=== PATIENT | male | born 1975 | race Two or more races ===

== ENCOUNTER 2020-09-18 17:15 | Inpatient (IN) | payer OTHER ==
[2020-09-19] MEDS ORDERED: LORazepam 1 MG TABLET PO PRN (06:10)
[2020-09-19] MEDS ORDERED: MAGNESIUM CITRATE 300 ML BOTTLE PO PRN (06:10)
[2020-09-19] MEDS ORDERED: IBUPROFEN 400 MG TABLET (FP) PO PRN (06:10)
[2020-09-19] MEDS ORDERED: MENTHOL/PHENOL 1 EACH UD MM PRN (06:10)
[2020-09-19] MEDS ORDERED: MAG HYDROX/AL HYDROX/SIMETH 30 ML UNIT-DOSE CUP PO PRN (06:10)
[2020-09-19] MEDS ORDERED: NICOTINE POLACRILEX 2 MG GUM BUC PRN (06:10)
[2020-09-19] MEDS ORDERED: ACETAMINOPHEN 325 MG TABLET (FP) PO PRN ×2 (06:10)
[2020-09-19] MEDS ORDERED: ONDANSETRON *ODT* 4 MG TABLET SL PRN (06:10)
[2020-09-19] MEDS ORDERED: BISMUTH SUBSALICYLATE 524 MG/30 ML UD PO PRN (06:10)
[2020-09-19] MEDS ORDERED: METHOCARBAMOL 500 MG TABLET PO PRN (06:10)
[2020-09-19 06:50] VITALS: BMI 39.9
[2020-09-19] MEDS: LORazepam 2 MG TABLET PO SCH ×4 (08:12→22:02)
[2020-09-19] MEDS: PRENATAL VITAMINS W/ FOLIC ACID TABLET (FP) PO SCH (10:49)
[2020-09-19] MEDS: NICOTINE 14 MG/24 HOURS TOPICAL PATCH TD SCH (10:52)
[2020-09-19] MEDS: THIAMINE HCL 100 MG TABLET (FP) PO SCH (22:02)
[2020-09-19] MEDS: MELATONIN 5 MG TABLETS PO SCH (22:02)
[2020-09-20] MEDS: LORazepam 1 MG TABLET PO SCH ×4 (05:45→22:19)
[2020-09-20] MEDS: PRENATAL VITAMINS W/ FOLIC ACID TABLET (FP) PO SCH (10:18)
[2020-09-20] MEDS: NICOTINE 14 MG/24 HOURS TOPICAL PATCH TD SCH (10:19)
[2020-09-20 12:04] LABS: HEMATOCRIT 35.6 % (35.4-49); MCH 32.7 pg (25.7-33.7); MCHC 33.7 g/dl (32.0-35.9); MEAN CELL VOLUME 96.9 fl (80-96); MEAN PLT VOLUME 9.2 fl (7.5-11.1); PLATELET COUNT 89 K/MM3 (134-434); RBC 3.67 M/mm3 (4.00-5.60); RDW 14.2 % (11.9-15.9); WHITE BLOOD COUNT 3.2 K/mm3 (4.0-10.0)
[2020-09-20 12:06] LABS: POTASSIUM 3.1 mmol/L (3.5-5.1)
[2020-09-20 12:08] LABS: CALCIUM 8.5 mg/dL (8.5-10.1)
[2020-09-20 12:09] LABS: ALBUMIN 3.2 g/dl (3.4-5.0); BLOOD UREA NITROGEN 6.9 mg/dL (7-18)
[2020-09-20 12:12] LABS: CREATININE 0.5 mg/dL (0.55-1.3)
[2020-09-20 12:13] LABS: BILIRUBIN,TOTAL 2.1 mg/dL (0.2-1)
[2020-09-20 12:14] LABS: TOT PROT 7.1 g/dl (6.4-8.2)
[2020-09-20] MEDS ORDERED: POTASSIUM CHLORIDE TABS 20 MEQ TABLET.ER (FP) PO ONE ×2 (14:36→21:00)
[2020-09-20] MEDS: MAGNESIUM HYDROX 2400MG/30ML ORAL SUSPENSION 30 ML CUP PO PRN (14:37)
[2020-09-20] MEDS ORDERED: LORazepam 0.5 MG TABLET ONE (21:31)
[2020-09-20] MEDS: THIAMINE HCL 100 MG TABLET (FP) PO SCH (22:18)
[2020-09-20] MEDS: MELATONIN 5 MG TABLETS PO SCH (22:19)
[2020-09-21] MEDS ORDERED: LORazepam 0.5 MG TABLET PO PRN
[2020-09-21] MEDS: LORazepam 0.5 MG TABLET PO SCH ×4 (05:30→22:09)
[2020-09-21] MEDS: MAGNESIUM HYDROX 2400MG/30ML ORAL SUSPENSION 30 ML CUP PO PRN (05:33)
[2020-09-21] MEDS: NICOTINE 14 MG/24 HOURS TOPICAL PATCH TD SCH (10:21)
[2020-09-21] MEDS: PRENATAL VITAMINS W/ FOLIC ACID TABLET (FP) PO SCH (10:21)
[2020-09-21 12:23] LABS: ALBUMIN 3.2 g/dl (3.4-5.0); BLOOD UREA NITROGEN 7.8 mg/dL (7-18)
[2020-09-21 12:25] LABS: CALCIUM 9.1 mg/dL (8.5-10.1)
[2020-09-21 12:26] LABS: CREATININE 0.5 mg/dL (0.55-1.3)
[2020-09-21 12:27] LABS: BILIRUBIN,TOTAL 0.8 mg/dL (0.2-1)
[2020-09-21 12:28] LABS: TOT PROT 7.2 g/dl (6.4-8.2)
[2020-09-21] MEDS: LIDOCAINE 5% TOPICAL PATCH TP SCH (13:45)
[2020-09-21] MEDS: MELATONIN 5 MG TABLETS PO SCH (22:09)
[2020-09-21] MEDS: THIAMINE HCL 100 MG TABLET (FP) PO SCH (22:09)
[2020-09-21] MEDS: LIDOCAINE PATCH REMOVAL MC SCH (22:10)
[2020-09-22] MEDS ORDERED: LORazepam 0.5 MG TABLET PO ONE (05:00)
[2020-09-22] MEDS: PRENATAL VITAMINS W/ FOLIC ACID TABLET (FP) PO SCH (10:32)
[2020-09-22] MEDS: NICOTINE 14 MG/24 HOURS TOPICAL PATCH TD SCH (10:32)
[2020-09-22] MEDS: LIDOCAINE 5% TOPICAL PATCH TP SCH (10:33)
[2020-09-22] MEDS: MELATONIN 5 MG TABLETS PO SCH (22:11)
[2020-09-22] MEDS: THIAMINE HCL 100 MG TABLET (FP) PO SCH (22:11)
[2020-09-22] MEDS: MAGNESIUM HYDROX 2400MG/30ML ORAL SUSPENSION 30 ML CUP PO PRN (22:12)
[2020-09-22] MEDS: LIDOCAINE PATCH REMOVAL MC SCH (22:13)
[2020-09-23 09:15] VITALS: BP 103/68; PULSE 82; TEMP 96.6
[2020-09-23] MEDS: LIDOCAINE 5% TOPICAL PATCH TP SCH (10:06)
[2020-09-23] MEDS: NICOTINE 14 MG/24 HOURS TOPICAL PATCH TD SCH (10:09)
[2020-09-23] MEDS: PRENATAL VITAMINS W/ FOLIC ACID TABLET (FP) PO SCH (10:09)
== END 2020-09-23 10:59 | disposition other institution (70) | DRG 775 ==
LOC: YASAS 17:15 → Y3N 09-19 06:35
PROVIDERS: ADMIT Allergy & Immunology; ATTEND Allergy & Immunology
PROC: HZ2ZZZZ Detoxification Services for Substance Abuse Treatment (ICD-10-PCS; principal; 2020-09-19)
DX: F10.230 Alcohol dependence with withdrawal, uncomplicated (principal); F17.210 Nicotine dependence, cigarettes, uncomplicated; D69.6 Thrombocytopenia, unspecified; E87.6 Hypokalemia; E78.5 Hyperlipidemia, unspecified; I10 Essential (primary) hypertension; K76.0 Fatty (change of) liver, not elsewhere classified; R73.9 Hyperglycemia, unspecified; R94.5 Abnormal results of liver function studies; R76.11 Nonspecific reaction to tuberculin skin test without active tuberculosis
CPT/HCPCS: 36415; 71045-TC-FY; 71046-TC-FY; 71111-TC-FY; 74177-TC; 76705-TC; 80053; 80307; 82550; 82553; 83036; 83690; 84484; 85025; 85027; 86780; 93005; 93010; 99285-25; C9803; Q9967; U0003

== ENCOUNTER 2020-09-18 20:47 | Emergency (ER) | payer OTHER ==
[2020-09-18 21:02] VITALS: TEMP 98; BMI 45.7
[2020-09-18] MEDS ORDERED: ACETAMINOPHEN 1000 MG/100 ML VIAL (NON FORMULARY) IVPB ONE (21:21)
[2020-09-18] MEDS ORDERED: FAMOTIDINE 20 MG/50 ML IVPB 20 MG/50 ML MG IVPB ONE ×2 (21:21→22:12)
[2020-09-18] MEDS ORDERED: SODIUM CHLORIDE 1,000 ML IV STA (21:28)
[2020-09-18] MEDS ORDERED: chlordiazePOXIDE HCL 25 MG CAPSULE PO ONE (22:04)
[2020-09-18] MEDS ORDERED: LORazepam 2 MG/ML SDV VIAL IVPUSH ONE (22:04)
[2020-09-18] MEDS ORDERED: chlordiazePOXIDE HCL 25 MG CAPSULE ONE (22:12)
[2020-09-18] MEDS ORDERED: LORazepam 2 MG/ML SDV VIAL ONE (22:12)
[2020-09-18 22:14] LABS: BASO % 0.9 % (0-2.0); EOS % 2.2 % (0-4.5); HEMATOCRIT 35.1 % (35.4-49); HEMOGLOBIN 11.8 GM/dL (11.7-16.9); LYMPH % 31.4 % (8-40); MCH 32.6 pg (25.7-33.7); MCHC 33.6 g/dl (32.0-35.9); MEAN CELL VOLUME 97.2 fl (80-96); MEAN PLT VOLUME 8.6 fl (7.5-11.1); MONO % 11.6 % (3.8-10.2); NEUT % 53.9 % (42.8-82.8); PLATELET COUNT 105 K/MM3 (134-434); RBC 3.61 M/mm3 (4.00-5.60); RDW 14.1 % (11.9-15.9); WHITE BLOOD COUNT 4.5 K/mm3 (4.0-10.0)
[2020-09-18 22:33] LABS: CHLORIDE 98 mmol/L (98-107); POTASSIUM 3.9 mmol/L (3.5-5.1); SODIUM 136 mmol/L (136-145)
[2020-09-18 22:35] LABS: CALCIUM 8.8 mg/dL (8.5-10.1)
[2020-09-18 22:36] LABS: ALBUMIN 3.4 g/dl (3.4-5.0); ANION GAP 7 MMOL/L (8-16); BLOOD UREA NITROGEN 12.7 mg/dL (7-18); CO2 31 mmol/L (21-32); GLUCOSE,RANDOM 85 mg/dL (74-106)
[2020-09-18 22:39] LABS: CREATININE 0.6 mg/dL (0.55-1.3); SGPT/ALT 55 U/L (13-61)
[2020-09-18 22:41] LABS: BILIRUBIN,TOTAL 0.8 mg/dL (0.2-1); TOT PROT 7.8 g/dl (6.4-8.2)
[2020-09-18 22:42] LABS: ALK PHOS 175 U/L (45-117)
[2020-09-18 23:02] LABS: SGOT/AST 121 U/L (15-37)
[2020-09-18] MEDS ORDERED: morphine CARPU-JECT 2 MG/1 ML DISP.SYRIN IVPUSH ONE (23:10)
[2020-09-18] MEDS ORDERED: MAG HYDROX/AL HYDROX/SIMETH 30 ML UNIT-DOSE CUP PO ONE (23:16)
[2020-09-18 23:21] LABS: LIPASE 155 U/L (73-393)
[2020-09-19] MEDS ORDERED: MORPHINE SULFATE 2 MG/ML VIAL ONE (00:24)
[2020-09-19] MEDS ORDERED: MAG HYDROX/AL HYDROX/SIMETH 30 ML UNIT-DOSE CUP ONE (00:24)
[2020-09-19 01:47] VITALS: BP 158/85; PULSE 103
== END 2020-09-19 03:16 | disposition home or self-care (01) ==
LOC: JER 20:47
PROC: 3E033NZ Introduction of Analgesics, Hypnotics, Sedatives into Peripheral Vein, Percutaneous Approach (ICD-10-PCS; principal; 2020-09-18)
PROC: 3E033GC Introduction of Other Therapeutic Substance into Peripheral Vein, Percutaneous Approach (ICD-10-PCS; 2020-09-18)
PROC: 3E0337Z Introduction of Electrolytic and Water Balance Substance into Peripheral Vein, Percutaneous Approach (ICD-10-PCS; 2020-09-18)
DX: F10.10 Alcohol abuse, uncomplicated (principal); R07.9 Chest pain, unspecified; K76.0 Fatty (change of) liver, not elsewhere classified
CPT/HCPCS: 36415; 71045-TC-FY; 74177-TC; 76705-TC; 80053; 80307; 82550; 82553; 83690; 84484; 85025; 93005; 93010; 99285-25; C9803; Q9967; U0003

== ENCOUNTER 2020-09-23 11:05 | Inpatient (IN) | payer OTHER ==
[2020-09-23] MEDS ORDERED: MENTHOL/PHENOL 1 EACH UD MM PRN (12:02)
[2020-09-23] MEDS ORDERED: P-EPHED 60MG/TRIPROLIDI 2.5MG TABLET PO PRN (12:02)
[2020-09-23] MEDS ORDERED: ACETAMINOPHEN 325 MG TABLET (FP) PO PRN (12:02)
[2020-09-23] MEDS ORDERED: guaiFENesin 200 MG/10 ML 10 ML UNIT-DOSE CUPS PO PRN (12:02)
[2020-09-23] MEDS ORDERED: MAGNESIUM CITRATE 300 ML BOTTLE PO PRN (12:02)
[2020-09-23] MEDS ORDERED: IBUPROFEN 400 MG TABLET (FP) PO PRN (12:02)
[2020-09-23] MEDS ORDERED: LOPERAMIDE HCL 2 MG CAPSULE PO PRN (12:02)
[2020-09-23] MEDS ORDERED: MAG HYDROX/AL HYDROX/SIMETH 30 ML UNIT-DOSE CUP PO PRN (12:02)
[2020-09-23] MEDS: METHOCARBAMOL 500 MG TABLET PO SCH ×3 (14:34→21:05)
[2020-09-23] MEDS: THIAMINE HCL 100 MG TABLET (FP) PO SCH (21:04)
[2020-09-23] MEDS: MELATONIN 5 MG TABLETS PO SCH (21:04)
[2020-09-23] MEDS: MAGNESIUM HYDROX 2400MG/30ML ORAL SUSPENSION 30 ML CUP PO PRN (23:12)
[2020-09-24] MEDS: hydrOXYzine PAMOATE 25 MG CAPSULE (FP) PO PRN ×2 (10:46→14:44)
[2020-09-24] MEDS: PANTOPRAZOLE 40 MG TABLET PO SCH (10:46)
[2020-09-24] MEDS: METHOCARBAMOL 500 MG TABLET PO SCH ×4 (10:46→21:44)
[2020-09-24] MEDS: PRENATAL VITAMINS W/ FOLIC ACID TABLET (FP) PO SCH (10:46)
[2020-09-24] MEDS: LIDOCAINE 5% TOPICAL PATCH TP SCH (17:25)
[2020-09-24] MEDS: THIAMINE HCL 100 MG TABLET (FP) PO SCH (21:44)
[2020-09-24] MEDS: MELATONIN 5 MG TABLETS PO SCH (21:44)
[2020-09-24] MEDS: LIDOCAINE PATCH REMOVAL MC SCH (21:45)
[2020-09-25] MEDS ORDERED: MASKS NR ONE (07:23)
[2020-09-25] MEDS: METHOCARBAMOL 500 MG TABLET PO SCH ×4 (11:40→23:08)
[2020-09-25] MEDS: PRENATAL VITAMINS W/ FOLIC ACID TABLET (FP) PO SCH (11:40)
[2020-09-25] MEDS: PANTOPRAZOLE 40 MG TABLET PO SCH (11:40)
[2020-09-25] MEDS: LIDOCAINE 5% TOPICAL PATCH TP SCH (11:43)
[2020-09-25] MEDS: hydrOXYzine PAMOATE 25 MG CAPSULE (FP) PO PRN (14:39)
[2020-09-25] MEDS: AMMONIUM LACTATE 12% LOTION 225 GM BOTTLE TP SCH (23:06)
[2020-09-25] MEDS: LIDOCAINE PATCH REMOVAL MC SCH (23:06)
[2020-09-25] MEDS: MELATONIN 5 MG TABLETS PO SCH (23:08)
[2020-09-25] MEDS: THIAMINE HCL 100 MG TABLET (FP) PO SCH (23:08)
[2020-09-25] MEDS: MAGNESIUM HYDROX 2400MG/30ML ORAL SUSPENSION 30 ML CUP PO PRN (23:09)
[2020-09-26] MEDS: AMMONIUM LACTATE 12% LOTION 225 GM BOTTLE TP SCH ×2 (10:45→21:54)
[2020-09-26] MEDS: hydrOXYzine PAMOATE 25 MG CAPSULE (FP) PO PRN (10:45)
[2020-09-26] MEDS: PANTOPRAZOLE 40 MG TABLET PO SCH (10:45)
[2020-09-26] MEDS: METHOCARBAMOL 500 MG TABLET PO SCH ×4 (10:45→21:55)
[2020-09-26] MEDS: PRENATAL VITAMINS W/ FOLIC ACID TABLET (FP) PO SCH (10:46)
[2020-09-26] MEDS: LIDOCAINE 5% TOPICAL PATCH TP SCH ×2 (10:46)
[2020-09-26 12:15] LABS: CHOLESTEROL 215 mg/dL (50-200)
[2020-09-26 12:16] LABS: TRIGLYCERIDES 134 mg/dL (0-150)
[2020-09-26 12:17] LABS: LDL CHOLESTEROL (ONLY SJRH) 110 mg/dL (5-100)
[2020-09-26 12:19] LABS: HDL CHOLESTEROL 73 mg/dL (40-60)
[2020-09-26] MEDS ORDERED: PT OWN MED DRAWER 7, Y5N ONE (13:45)
[2020-09-26] MEDS: THIAMINE HCL 100 MG TABLET (FP) PO SCH (21:54)
[2020-09-26] MEDS: LIDOCAINE PATCH REMOVAL MC SCH ×2 (21:54)
[2020-09-26] MEDS: MELATONIN 5 MG TABLETS PO SCH (21:54)
[2020-09-26] MEDS: MAGNESIUM HYDROX 2400MG/30ML ORAL SUSPENSION 30 ML CUP PO PRN (22:53)
[2020-09-27] MEDS: hydrOXYzine PAMOATE 25 MG CAPSULE (FP) PO PRN ×2 (10:43→23:06)
[2020-09-27] MEDS: PRENATAL VITAMINS W/ FOLIC ACID TABLET (FP) PO SCH (10:43)
[2020-09-27] MEDS: METHOCARBAMOL 500 MG TABLET PO SCH ×4 (10:43→23:06)
[2020-09-27] MEDS: LIDOCAINE 5% TOPICAL PATCH TP SCH ×2 (10:43→10:44)
[2020-09-27] MEDS: PANTOPRAZOLE 40 MG TABLET PO SCH (10:43)
[2020-09-27] MEDS: AMMONIUM LACTATE 12% LOTION 225 GM BOTTLE TP SCH ×2 (10:43→23:06)
[2020-09-27] MEDS: LIDOCAINE PATCH REMOVAL MC SCH ×2 (23:05)
[2020-09-27] MEDS: MELATONIN 5 MG TABLETS PO SCH (23:05)
[2020-09-27] MEDS: THIAMINE HCL 100 MG TABLET (FP) PO SCH (23:05)
[2020-09-27] MEDS: MAGNESIUM HYDROX 2400MG/30ML ORAL SUSPENSION 30 ML CUP PO PRN (23:07)
[2020-09-28] MEDS: METHOCARBAMOL 500 MG TABLET PO SCH ×4 (10:40→22:25)
[2020-09-28] MEDS: PANTOPRAZOLE 40 MG TABLET PO SCH (10:40)
[2020-09-28] MEDS: PRENATAL VITAMINS W/ FOLIC ACID TABLET (FP) PO SCH (10:40)
[2020-09-28] MEDS: LIDOCAINE 5% TOPICAL PATCH TP SCH ×2 (10:40)
[2020-09-28] MEDS: hydrOXYzine PAMOATE 25 MG CAPSULE (FP) PO PRN (10:40)
[2020-09-28] MEDS: AMMONIUM LACTATE 12% LOTION 225 GM BOTTLE TP SCH ×2 (10:41→22:27)
[2020-09-28] MEDS: MELATONIN 5 MG TABLETS PO SCH (22:25)
[2020-09-28] MEDS: THIAMINE HCL 100 MG TABLET (FP) PO SCH (22:25)
[2020-09-28] MEDS: LIDOCAINE PATCH REMOVAL MC SCH ×2 (22:27→22:28)
[2020-09-28] MEDS: MAGNESIUM HYDROX 2400MG/30ML ORAL SUSPENSION 30 ML CUP PO PRN (22:27)
[2020-09-29] MEDS: PRENATAL VITAMINS W/ FOLIC ACID TABLET (FP) PO SCH (10:51)
[2020-09-29] MEDS: LIDOCAINE 5% TOPICAL PATCH TP SCH ×2 (10:51→10:52)
[2020-09-29] MEDS: PANTOPRAZOLE 40 MG TABLET PO SCH (10:52)
[2020-09-29] MEDS: METHOCARBAMOL 500 MG TABLET PO SCH ×4 (10:52→22:26)
[2020-09-29] MEDS: AMMONIUM LACTATE 12% LOTION 225 GM BOTTLE TP SCH ×2 (10:58→22:26)
[2020-09-29] MEDS ORDERED: PT OWN MED DRAWER 7, Y5N ONE (12:15)
[2020-09-29] MEDS ORDERED: MASKS NR ONE (12:16)
[2020-09-29] MEDS: THIAMINE HCL 100 MG TABLET (FP) PO SCH (22:26)
[2020-09-29] MEDS: MELATONIN 5 MG TABLETS PO SCH (22:26)
[2020-09-29] MEDS: LIDOCAINE PATCH REMOVAL MC SCH ×2 (22:26)
[2020-09-29] MEDS: MAGNESIUM HYDROX 2400MG/30ML ORAL SUSPENSION 30 ML CUP PO PRN (22:33)
[2020-09-30] MEDS: hydrOXYzine PAMOATE 25 MG CAPSULE (FP) PO PRN (09:56)
[2020-09-30] MEDS: PRENATAL VITAMINS W/ FOLIC ACID TABLET (FP) PO SCH (09:56)
[2020-09-30] MEDS: METHOCARBAMOL 500 MG TABLET PO SCH ×4 (09:56→22:35)
[2020-09-30] MEDS: PANTOPRAZOLE 40 MG TABLET PO SCH (09:56)
[2020-09-30] MEDS: LIDOCAINE 5% TOPICAL PATCH TP SCH ×2 (09:59)
[2020-09-30] MEDS: AMMONIUM LACTATE 12% LOTION 225 GM BOTTLE TP SCH ×2 (10:00→22:38)
[2020-09-30] MEDS: THIAMINE HCL 100 MG TABLET (FP) PO SCH (22:35)
[2020-09-30] MEDS: MELATONIN 5 MG TABLETS PO SCH (22:35)
[2020-09-30] MEDS: MAGNESIUM HYDROX 2400MG/30ML ORAL SUSPENSION 30 ML CUP PO PRN (22:37)
[2020-09-30] MEDS: LIDOCAINE PATCH REMOVAL MC SCH ×2 (22:38)
[2020-10-01] MEDS: hydrOXYzine PAMOATE 25 MG CAPSULE (FP) PO PRN (10:36)
[2020-10-01] MEDS: PANTOPRAZOLE 40 MG TABLET PO SCH (10:36)
[2020-10-01] MEDS: PRENATAL VITAMINS W/ FOLIC ACID TABLET (FP) PO SCH (10:36)
[2020-10-01] MEDS: METHOCARBAMOL 500 MG TABLET PO SCH ×4 (10:36→22:47)
[2020-10-01] MEDS: LIDOCAINE 5% TOPICAL PATCH TP SCH ×2 (10:36→10:37)
[2020-10-01] MEDS: AMMONIUM LACTATE 12% LOTION 225 GM BOTTLE TP SCH ×2 (10:37→22:49)
[2020-10-01] MEDS ORDERED: MASKS NR ONE (11:49)
[2020-10-01] MEDS: DOCUSATE SODIUM 100 MG CAPSULE (FP) PO SCH ×2 (14:04→22:47)
[2020-10-01] MEDS: THIAMINE HCL 100 MG TABLET (FP) PO SCH (22:47)
[2020-10-01] MEDS: MELATONIN 5 MG TABLETS PO SCH (22:48)
[2020-10-01] MEDS: LIDOCAINE PATCH REMOVAL MC SCH ×2 (22:48→22:49)
[2020-10-01] MEDS: FAMOTIDINE 20 MG TABLET PO SCH (22:51)
[2020-10-02] MEDS: DOCUSATE SODIUM 100 MG CAPSULE (FP) PO SCH ×3 (07:10→23:10)
[2020-10-02] MEDS ORDERED: MASKS NR ONE (08:54)
[2020-10-02] MEDS: PRENATAL VITAMINS W/ FOLIC ACID TABLET (FP) PO SCH (10:06)
[2020-10-02] MEDS: FAMOTIDINE 20 MG TABLET PO SCH ×2 (10:06→23:10)
[2020-10-02] MEDS: METHOCARBAMOL 500 MG TABLET PO SCH ×4 (10:06→23:10)
[2020-10-02] MEDS: LIDOCAINE 5% TOPICAL PATCH TP SCH ×2 (10:07)
[2020-10-02] MEDS: AMMONIUM LACTATE 12% LOTION 225 GM BOTTLE TP SCH ×2 (10:07→23:11)
[2020-10-02] MEDS: hydrOXYzine PAMOATE 25 MG CAPSULE (FP) PO PRN (10:09)
[2020-10-02] MEDS: THIAMINE HCL 100 MG TABLET (FP) PO SCH (23:10)
[2020-10-02] MEDS: MELATONIN 5 MG TABLETS PO SCH (23:10)
[2020-10-02] MEDS: LIDOCAINE PATCH REMOVAL MC SCH ×2 (23:11→23:12)
[2020-10-03] MEDS: DOCUSATE SODIUM 100 MG CAPSULE (FP) PO SCH ×3 (06:24→23:04)
[2020-10-03] MEDS: METHOCARBAMOL 500 MG TABLET PO SCH ×4 (10:04→23:04)
[2020-10-03] MEDS: PRENATAL VITAMINS W/ FOLIC ACID TABLET (FP) PO SCH (10:04)
[2020-10-03] MEDS: FAMOTIDINE 20 MG TABLET PO SCH ×2 (10:04→23:04)
[2020-10-03] MEDS: LIDOCAINE 5% TOPICAL PATCH TP SCH ×2 (10:04)
[2020-10-03] MEDS: AMMONIUM LACTATE 12% LOTION 225 GM BOTTLE TP SCH ×2 (10:05→23:07)
[2020-10-03] MEDS: MELATONIN 5 MG TABLETS PO SCH (23:05)
[2020-10-03] MEDS: LIDOCAINE PATCH REMOVAL MC SCH ×2 (23:05)
[2020-10-03] MEDS: THIAMINE HCL 100 MG TABLET (FP) PO SCH (23:06)
[2020-10-04] MEDS: DOCUSATE SODIUM 100 MG CAPSULE (FP) PO SCH ×3 (06:27→22:01)
[2020-10-04] MEDS: LIDOCAINE 5% TOPICAL PATCH TP SCH ×2 (10:15→10:17)
[2020-10-04] MEDS: AMMONIUM LACTATE 12% LOTION 225 GM BOTTLE TP SCH ×2 (10:16→22:01)
[2020-10-04] MEDS: METHOCARBAMOL 500 MG TABLET PO SCH ×4 (10:16→22:00)
[2020-10-04] MEDS: PRENATAL VITAMINS W/ FOLIC ACID TABLET (FP) PO SCH (10:16)
[2020-10-04] MEDS: FAMOTIDINE 20 MG TABLET PO SCH ×2 (10:16→22:00)
[2020-10-04] MEDS: MELATONIN 5 MG TABLETS PO SCH (21:59)
[2020-10-04] MEDS: THIAMINE HCL 100 MG TABLET (FP) PO SCH (21:59)
[2020-10-04] MEDS: LIDOCAINE PATCH REMOVAL MC SCH ×2 (22:01)
[2020-10-05] MEDS: DOCUSATE SODIUM 100 MG CAPSULE (FP) PO SCH ×3 (06:36→23:00)
[2020-10-05] MEDS: hydrOXYzine PAMOATE 25 MG CAPSULE (FP) PO PRN (10:26)
[2020-10-05] MEDS: FAMOTIDINE 20 MG TABLET PO SCH ×2 (10:26→22:59)
[2020-10-05] MEDS: PRENATAL VITAMINS W/ FOLIC ACID TABLET (FP) PO SCH (10:26)
[2020-10-05] MEDS: METHOCARBAMOL 500 MG TABLET PO SCH ×4 (10:26→22:59)
[2020-10-05] MEDS: LIDOCAINE 5% TOPICAL PATCH TP SCH ×2 (10:27→10:29)
[2020-10-05] MEDS: AMMONIUM LACTATE 12% LOTION 225 GM BOTTLE TP SCH ×2 (10:28→23:00)
[2020-10-05] MEDS: THIAMINE HCL 100 MG TABLET (FP) PO SCH (22:55)
[2020-10-05] MEDS: MELATONIN 5 MG TABLETS PO SCH (22:55)
[2020-10-05] MEDS: LIDOCAINE PATCH REMOVAL MC SCH ×2 (23:00)
[2020-10-06] MEDS: DOCUSATE SODIUM 100 MG CAPSULE (FP) PO SCH ×4 (06:33→22:46)
[2020-10-06] MEDS: METHOCARBAMOL 500 MG TABLET PO SCH ×5 (10:23→22:47)
[2020-10-06] MEDS: PRENATAL VITAMINS W/ FOLIC ACID TABLET (FP) PO SCH (10:23)
[2020-10-06] MEDS: FAMOTIDINE 20 MG TABLET PO SCH ×2 (10:24→22:49)
[2020-10-06] MEDS: LIDOCAINE 5% TOPICAL PATCH TP SCH ×2 (10:24→10:25)
[2020-10-06] MEDS: hydrOXYzine PAMOATE 25 MG CAPSULE (FP) PO PRN (10:26)
[2020-10-06] MEDS: AMMONIUM LACTATE 12% LOTION 225 GM BOTTLE TP SCH ×2 (10:32→22:49)
[2020-10-06] MEDS: MELATONIN 5 MG TABLETS PO SCH (22:47)
[2020-10-06] MEDS: THIAMINE HCL 100 MG TABLET (FP) PO SCH (22:48)
[2020-10-06] MEDS: LIDOCAINE PATCH REMOVAL MC SCH ×2 (22:48→22:49)
[2020-10-07] MEDS: DOCUSATE SODIUM 100 MG CAPSULE (FP) PO SCH ×3 (06:26→22:45)
[2020-10-07] MEDS: PRENATAL VITAMINS W/ FOLIC ACID TABLET (FP) PO SCH (10:26)
[2020-10-07] MEDS: hydrOXYzine PAMOATE 25 MG CAPSULE (FP) PO PRN (10:27)
[2020-10-07] MEDS: METHOCARBAMOL 500 MG TABLET PO SCH ×4 (10:27→22:46)
[2020-10-07] MEDS: LIDOCAINE 5% TOPICAL PATCH TP SCH ×2 (10:27)
[2020-10-07] MEDS: FAMOTIDINE 20 MG TABLET PO SCH ×2 (10:27→22:45)
[2020-10-07] MEDS: AMMONIUM LACTATE 12% LOTION 225 GM BOTTLE TP SCH ×2 (10:29→22:47)
[2020-10-07] MEDS: THIAMINE HCL 100 MG TABLET (FP) PO SCH (22:45)
[2020-10-07] MEDS: LIDOCAINE PATCH REMOVAL MC SCH ×2 (22:46→22:47)
[2020-10-07] MEDS: MELATONIN 5 MG TABLETS PO SCH (22:47)
[2020-10-08] MEDS: DOCUSATE SODIUM 100 MG CAPSULE (FP) PO SCH ×3 (06:31→21:46)
[2020-10-08] MEDS: PRENATAL VITAMINS W/ FOLIC ACID TABLET (FP) PO SCH (10:39)
[2020-10-08] MEDS: AMMONIUM LACTATE 12% LOTION 225 GM BOTTLE TP SCH ×2 (10:39→21:46)
[2020-10-08] MEDS: FAMOTIDINE 20 MG TABLET PO SCH ×2 (10:39→21:47)
[2020-10-08] MEDS: METHOCARBAMOL 500 MG TABLET PO SCH ×4 (10:40→21:48)
[2020-10-08] MEDS: LIDOCAINE 5% TOPICAL PATCH TP SCH ×2 (10:40)
[2020-10-08] MEDS ORDERED: PT OWN MED DRAWER 7, Y5N ONE (12:35)
[2020-10-08] MEDS: THIAMINE HCL 100 MG TABLET (FP) PO SCH (21:46)
[2020-10-08] MEDS: LIDOCAINE PATCH REMOVAL MC SCH ×2 (21:46→21:47)
[2020-10-08] MEDS: MELATONIN 5 MG TABLETS PO SCH (21:46)
[2020-10-09] MEDS: DOCUSATE SODIUM 100 MG CAPSULE (FP) PO SCH ×3 (06:34→22:07)
[2020-10-09] MEDS: METHOCARBAMOL 500 MG TABLET PO SCH ×4 (10:21→22:08)
[2020-10-09] MEDS: PRENATAL VITAMINS W/ FOLIC ACID TABLET (FP) PO SCH (10:22)
[2020-10-09] MEDS: FAMOTIDINE 20 MG TABLET PO SCH ×2 (10:22→22:08)
[2020-10-09] MEDS: hydrOXYzine PAMOATE 25 MG CAPSULE (FP) PO PRN (10:22)
[2020-10-09] MEDS: LIDOCAINE 5% TOPICAL PATCH TP SCH ×2 (10:23)
[2020-10-09] MEDS: AMMONIUM LACTATE 12% LOTION 225 GM BOTTLE TP SCH ×2 (10:24→22:10)
[2020-10-09] MEDS: THIAMINE HCL 100 MG TABLET (FP) PO SCH (22:07)
[2020-10-09] MEDS: MELATONIN 5 MG TABLETS PO SCH (22:07)
[2020-10-09] MEDS: LIDOCAINE PATCH REMOVAL MC SCH ×2 (22:09)
[2020-10-10] MEDS: AMMONIUM LACTATE 12% LOTION 225 GM BOTTLE TP SCH ×2 (10:29→22:28)
[2020-10-10] MEDS: LIDOCAINE 5% TOPICAL PATCH TP SCH ×2 (10:29→10:30)
[2020-10-10] MEDS: PRENATAL VITAMINS W/ FOLIC ACID TABLET (FP) PO SCH (10:29)
[2020-10-10] MEDS: DOCUSATE SODIUM 100 MG CAPSULE (FP) PO SCH ×2 (10:29→22:25)
[2020-10-10] MEDS: FAMOTIDINE 20 MG TABLET PO SCH ×2 (10:29→22:26)
[2020-10-10] MEDS: METHOCARBAMOL 500 MG TABLET PO SCH ×4 (10:30→22:27)
[2020-10-10] MEDS: hydrOXYzine PAMOATE 25 MG CAPSULE (FP) PO PRN (10:31)
[2020-10-10] MEDS: MELATONIN 5 MG TABLETS PO SCH (22:26)
[2020-10-10] MEDS: THIAMINE HCL 100 MG TABLET (FP) PO SCH (22:26)
[2020-10-10] MEDS: LIDOCAINE PATCH REMOVAL MC SCH ×2 (22:28)
[2020-10-11] MEDS: DOCUSATE SODIUM 100 MG CAPSULE (FP) PO SCH ×2 (10:09→21:53)
[2020-10-11] MEDS: PRENATAL VITAMINS W/ FOLIC ACID TABLET (FP) PO SCH (10:09)
[2020-10-11] MEDS: hydrOXYzine PAMOATE 25 MG CAPSULE (FP) PO PRN (10:09)
[2020-10-11] MEDS: METHOCARBAMOL 500 MG TABLET PO SCH ×4 (10:10→21:52)
[2020-10-11] MEDS: FAMOTIDINE 20 MG TABLET PO SCH ×2 (10:10→21:55)
[2020-10-11] MEDS: AMMONIUM LACTATE 12% LOTION 225 GM BOTTLE TP SCH ×2 (10:10→21:55)
[2020-10-11] MEDS: LIDOCAINE 5% TOPICAL PATCH TP SCH ×2 (10:10)
[2020-10-11] MEDS ORDERED: MASKS NR ONE (10:17)
[2020-10-11] MEDS: MELATONIN 5 MG TABLETS PO SCH (21:53)
[2020-10-11] MEDS: THIAMINE HCL 100 MG TABLET (FP) PO SCH (21:53)
[2020-10-11] MEDS: LIDOCAINE PATCH REMOVAL MC SCH ×2 (21:54)
[2020-10-12] MEDS: LIDOCAINE 5% TOPICAL PATCH TP SCH ×2 (10:25→10:26)
[2020-10-12] MEDS: FAMOTIDINE 20 MG TABLET PO SCH ×2 (10:25→21:44)
[2020-10-12] MEDS: DOCUSATE SODIUM 100 MG CAPSULE (FP) PO SCH ×2 (10:25→21:44)
[2020-10-12] MEDS: PRENATAL VITAMINS W/ FOLIC ACID TABLET (FP) PO SCH (10:25)
[2020-10-12] MEDS: AMMONIUM LACTATE 12% LOTION 225 GM BOTTLE TP SCH ×2 (10:27→21:45)
[2020-10-12] MEDS: METHOCARBAMOL 500 MG TABLET PO SCH ×4 (10:27→21:45)
[2020-10-12] MEDS: LIDOCAINE PATCH REMOVAL MC SCH ×2 (21:43)
[2020-10-12] MEDS: MELATONIN 5 MG TABLETS PO SCH (21:44)
[2020-10-12] MEDS: THIAMINE HCL 100 MG TABLET (FP) PO SCH (21:44)
[2020-10-13] MEDS: DOCUSATE SODIUM 100 MG CAPSULE (FP) PO SCH ×2 (10:14→21:56)
[2020-10-13] MEDS: PRENATAL VITAMINS W/ FOLIC ACID TABLET (FP) PO SCH (10:14)
[2020-10-13] MEDS: AMMONIUM LACTATE 12% LOTION 225 GM BOTTLE TP SCH ×2 (10:15→21:57)
[2020-10-13] MEDS: FAMOTIDINE 20 MG TABLET PO SCH ×2 (10:15→21:56)
[2020-10-13] MEDS: LIDOCAINE 5% TOPICAL PATCH TP SCH ×2 (10:15)
[2020-10-13] MEDS: METHOCARBAMOL 500 MG TABLET PO SCH ×4 (10:16→21:58)
[2020-10-13] MEDS: MAGNESIUM HYDROX 2400MG/30ML ORAL SUSPENSION 30 ML CUP PO PRN (14:36)
[2020-10-13] MEDS ORDERED: MASKS NR ONE (16:58)
[2020-10-13] MEDS: MELATONIN 5 MG TABLETS PO SCH (21:56)
[2020-10-13] MEDS: THIAMINE HCL 100 MG TABLET (FP) PO SCH (21:56)
[2020-10-13] MEDS: LIDOCAINE PATCH REMOVAL MC SCH ×2 (21:57)
[2020-10-14 07:36] VITALS: BP 124/80; PULSE 68; TEMP 97.5
[2020-10-14] MEDS: DOCUSATE SODIUM 100 MG CAPSULE (FP) PO SCH (09:13)
[2020-10-14] MEDS: FAMOTIDINE 20 MG TABLET PO SCH (09:13)
[2020-10-14] MEDS: PRENATAL VITAMINS W/ FOLIC ACID TABLET (FP) PO SCH (09:13)
[2020-10-14] MEDS: AMMONIUM LACTATE 12% LOTION 225 GM BOTTLE TP SCH (09:14)
[2020-10-14] MEDS: LIDOCAINE 5% TOPICAL PATCH TP SCH ×2 (09:14)
[2020-10-14] MEDS: METHOCARBAMOL 500 MG TABLET PO SCH (09:14)
== END 2020-10-14 09:39 | disposition home or self-care (01) | DRG 423 ==
LOC: YASAS 11:05 → Y3W 11:06
PROVIDERS: ADMIT Allergy & Immunology; ATTEND Allergy & Immunology
PROC: HZ42ZZZ Group Counseling for Substance Abuse Treatment, Cognitive-Behavioral (ICD-10-PCS; principal; 2020-09-23)
DX: E78.5 Hyperlipidemia, unspecified (principal); F17.210 Nicotine dependence, cigarettes, uncomplicated; F10.20 Alcohol dependence, uncomplicated; K76.0 Fatty (change of) liver, not elsewhere classified; L85.3 Xerosis cutis; M25.511 Pain in right shoulder; R60.0 Localized edema; E66.9 Obesity, unspecified; Z68.38 Body mass index [BMI] 38.0-38.9, adult; Z56.0 Unemployment, unspecified; Z59.0 Homelessness
CPT/HCPCS: 36415; 80061; 83721; 86803; C9803; U0003

== ENCOUNTER 2025-05-14 14:03 | Inpatient (IN) | payer OTHER ==
[2025-05-14] MEDS ORDERED: BISMUTH SUBSALICYLATE 524 MG/30 ML PO PRN (14:49)
[2025-05-14] MEDS ORDERED: NALOXONE (NARCAN) HCL 4 MG/0.1 ML SPRAY NS PRN (14:49)
[2025-05-14] MEDS ORDERED: BENZONATATE 200 MG CAPSULE PO PRN (14:49)
[2025-05-14] MEDS ORDERED: guaiFENesin 600 MG TABLET.ER (FP) PO PRN (14:49)
[2025-05-14] MEDS ORDERED: NICOTINE POLACRILEX 2 MG LOZENGE BC PRN (14:49)
[2025-05-14] MEDS ORDERED: IBUPROFEN 400 MG TABLET (FP) PO PRN (14:49)
[2025-05-14] MEDS ORDERED: BENZOCAINE/MENTHOL (CHLORASEPTIC ) LOZENGE MM PRN (14:49)
[2025-05-14] MEDS ORDERED: ONDANSETRON *ODT* 4 MG TABLET SL PRN (14:49)
[2025-05-14] MEDS ORDERED: LOPERAMIDE HCL 2 MG CAPSULE PO PRN (14:49)
[2025-05-14] MEDS ORDERED: PANTOPRAZOLE 20 MG TABLET PO SCH (15:00)
[2025-05-14 15:37] VITALS: BMI 23.7
[2025-05-14] MEDS: METHOCARBAMOL 500 MG TABLET PO PRN (17:43)
[2025-05-14] MEDS: PANTOPRAZOLE 20 MG TABLET PO SCH (17:43)
[2025-05-14] MEDS: IBUPROFEN 600 MG TABLET (FP) PO PRN (17:43)
[2025-05-14] MEDS: DICYCLOMINE HCL 10 MG CAPSULE PO PRN (17:43)
[2025-05-14] MEDS: NIFEdipine E.R. 90 MG TABLET PO SCH (17:46)
[2025-05-14] MEDS: NALTREXONE HCL 50 MG TABLET PO ONE (17:58)
[2025-05-14] MEDS: THIAMINE 100 MG TABLET PO SCH (22:06)
[2025-05-14] MEDS: PENICILLIN V POTASSIUM 500 MG TABLET PO SCH (22:06)
[2025-05-14] MEDS: MELATONIN 5 MG TABLETS PO SCH (22:06)
[2025-05-14] MEDS: levETIRAcetam 500 MG TABLET (FP) PO SCH (22:06)
[2025-05-14] MEDS: hydrOXYzine PAMOATE 25 MG CAPSULE (FP) PO PRN (22:06)
[2025-05-14] MEDS: MAGNESIUM HYDROX 2400MG/30ML ORAL SUSPENSION 30 ML CUP PO PRN (22:09)
[2025-05-15] MEDS: ACETAMINOPHEN 325 MG TABLET (FP) PO PRN (05:49)
[2025-05-15] MEDS ORDERED: AMOXICILLIN 500 MG CAPSULE (FP) PO SCH (10:00)
[2025-05-15] MEDS: NALTREXONE HCL 50 MG TABLET PO SCH (10:11)
[2025-05-15] MEDS: PRENATAL VITAMINS W/ FOLIC ACID TABLET (FP) PO SCH (10:12)
[2025-05-15 11:33] LABS: MCHC 32.9 g/dl (32.3-36.5); MEAN CELL VOLUME 91.6 fl (79.0-92.2); MEAN PLT VOLUME 11.8 fl (9.4-12.4); RDW 16.8 % (12.2-16.1)
[2025-05-15 12:14] LABS: GLUCOSE,RANDOM 120 mg/dL (74-106)
[2025-05-15 12:15] LABS: TOT PROT 7.2 g/dl (6.4-8.2)
[2025-05-15 12:16] LABS: CO2 25 mmol/L (21-32)
[2025-05-15 12:17] LABS: ALK PHOS 134 U/L (40-150)
[2025-05-15 12:20] LABS: CREATININE 0.42 mg/dL (0.55-1.3); SGOT/AST 34 U/L (5-34); SGPT/ALT 25 U/L (0-55)
[2025-05-15 12:34] LABS: HIV INTERPRETATION NEGATIVE (NEGATIVE)
[2025-05-15 12:35] LABS: HCV DIAGNOSTIC IN-HOUSE W/RFLX NON-REACTIVE (NONREACTIVE)
[2025-05-15] MEDS: POTASSIUM CHLORIDE TABS 20 MEQ TABLET.ER (FP) PO ONE (13:45)
[2025-05-15] MEDS: FERROUS SO4 325 MG TABLET (FP) PO SCH (22:21)
[2025-05-15] MEDS: MAG HYDROX/AL HYDROX/SIMETH 30 ML UNIT-DOSE CUP PO PRN (22:58)
[2025-05-16] MEDS: POLYETHYLENE GLYCOL (HEALTHYLAX) 3350 17 GM PACKET PO PRN (06:14)
[2025-05-16] MEDS: BENZOCAINE 20 % GEL TUBE MM SCH (14:14)
[2025-05-17] MEDS: FAMOTIDINE 20 MG TABLET PO ONE (10:35)
[2025-05-17 21:59] VITALS: RESP 16
[2025-05-18 07:00] VITALS: TEMP 97.8
[2025-05-18 09:16] VITALS: BP 126/67; PULSE 90
== END 2025-05-18 12:30 | disposition other institution (70) | DRG 775 ==
LOC: YASAS 14:03 → SUATTDRO 14:03 → Y3N 16:55
PROVIDERS: ADMIT Family Medicine; ATTEND Student in an Organized Health Care Education/Training Program
PROC: HZ2ZZZZ Detoxification Services for Substance Abuse Treatment (ICD-10-PCS; principal; 2025-05-14)
DX: F10.230 Alcohol dependence with withdrawal, uncomplicated (principal); F12.20 Cannabis dependence, uncomplicated; F17.210 Nicotine dependence, cigarettes, uncomplicated; E87.6 Hypokalemia; I10 Essential (primary) hypertension; D50.9 Iron deficiency anemia, unspecified; K21.9 Gastro-esophageal reflux disease without esophagitis; K08.89 Other specified disorders of teeth and supporting structures; R79.89 Other specified abnormal findings of blood chemistry
CPT/HCPCS: 36415; 80053; 80307; 82140; 84132; 85027; 86780; 86803; 87389; 87811; 93005; 93010

== ENCOUNTER 2025-06-13 21:33 | Inpatient (IN) | payer OTHER ==
[2025-06-13 22:13] VITALS: BMI 40.2
[2025-06-13] MEDS ORDERED: BENZOCAINE/MENTHOL (CHLORASEPTIC ) LOZENGE MM PRN (22:57)
[2025-06-13] MEDS ORDERED: NICOTINE POLACRILEX 2 MG GUM BUC PRN (22:57)
[2025-06-13] MEDS ORDERED: ACETAMINOPHEN 325 MG TABLET (FP) PO PRN (22:57)
[2025-06-13] MEDS ORDERED: IBUPROFEN 600 MG TABLET (FP) PO PRN (22:57)
[2025-06-13] MEDS ORDERED: POLYETHYLENE GLYCOL (HEALTHYLAX) 3350 17 GM PACKET PO PRN (22:57)
[2025-06-13] MEDS ORDERED: BISMUTH SUBSALICYLATE 524 MG/30 ML PO PRN (22:57)
[2025-06-13] MEDS ORDERED: guaiFENesin 600 MG TABLET.ER (FP) PO PRN (22:57)
[2025-06-13] MEDS ORDERED: BENZONATATE 200 MG CAPSULE PO PRN (22:57)
[2025-06-13] MEDS ORDERED: NALOXONE (NARCAN) HCL 4 MG/0.1 ML SPRAY NS PRN (22:57)
[2025-06-13] MEDS ORDERED: LOPERAMIDE HCL 2 MG CAPSULE PO PRN (22:57)
[2025-06-13] MEDS ORDERED: DICYCLOMINE HCL 10 MG CAPSULE PO PRN (22:57)
[2025-06-13] MEDS ORDERED: METHOCARBAMOL 500 MG TABLET ONE (23:23)
[2025-06-13] MEDS ORDERED: ONDANSETRON *ODT* 4 MG TABLET ONE (23:24)
[2025-06-13] MEDS: METHOCARBAMOL 500 MG TABLET PO PRN (23:34)
[2025-06-13] MEDS: ONDANSETRON *ODT* 4 MG TABLET SL PRN (23:35)
[2025-06-14] MEDS: MAG HYDROX/AL HYDROX/SIMETH 30 ML UNIT-DOSE CUP PO PRN (05:50)
[2025-06-14] MEDS: PRENATAL VITAMINS W/ FOLIC ACID TABLET (FP) PO SCH (10:11)
[2025-06-14 12:48] LABS: MCHC 33.1 g/dl (32.3-36.5); MEAN CELL VOLUME 88.4 fl (79.0-92.2); MEAN PLT VOLUME 12.4 fl (9.4-12.4); RDW 15.8 % (12.2-16.1)
[2025-06-14 13:14] LABS: GLUCOSE,RANDOM 94 mg/dL (74-106)
[2025-06-14 13:15] LABS: CO2 23 mmol/L (21-32); TOT PROT 7.2 g/dl (6.4-8.2)
[2025-06-14 13:17] LABS: ALK PHOS 123 U/L (40-150)
[2025-06-14 13:20] LABS: CREATININE 0.52 mg/dL (0.55-1.3); SGOT/AST 93 U/L (5-34); SGPT/ALT 56 U/L (0-55)
[2025-06-14] MEDS: MELATONIN 5 MG TABLETS PO SCH (22:03)
[2025-06-14] MEDS: THIAMINE 100 MG TABLET PO SCH (22:03)
[2025-06-14] MEDS: MAGNESIUM HYDROX 2400MG/30ML ORAL SUSPENSION 30 ML CUP PO PRN (22:04)
[2025-06-15] MEDS: PANTOPRAZOLE 40 MG TABLET PO SCH (10:14)
[2025-06-15] MEDS: POTASSIUM CHLORIDE ORAL LIQUID 20 MEQ/15 ML PO ONE ×2 (12:34→17:30)
[2025-06-15] MEDS: hydrOXYzine PAMOATE 25 MG CAPSULE (FP) PO PRN (12:34)
[2025-06-15] MEDS: IBUPROFEN 400 MG TABLET (FP) PO PRN (22:05)
[2025-06-17 08:39] VITALS: BP 129/82; PULSE 76; RESP 17; TEMP 97.7
== END 2025-06-17 09:20 | disposition other institution (70) | DRG 775 ==
LOC: YASAS 21:33 → Y6N 23:24
PROVIDERS: ADMIT Neuromusculoskeletal Medicine & OMM; ATTEND Counselor Addiction (Substance Use Disorder)
PROC: HZ2ZZZZ Detoxification Services for Substance Abuse Treatment (ICD-10-PCS; principal; 2025-06-13)
DX: F10.230 Alcohol dependence with withdrawal, uncomplicated (principal); F12.20 Cannabis dependence, uncomplicated; F17.210 Nicotine dependence, cigarettes, uncomplicated; F41.9 Anxiety disorder, unspecified; E72.20 Disorder of urea cycle metabolism, unspecified; E87.6 Hypokalemia; E78.5 Hyperlipidemia, unspecified; I10 Essential (primary) hypertension; K21.9 Gastro-esophageal reflux disease without esophagitis; K59.00 Constipation, unspecified
CPT/HCPCS: 36415; 80053; 80307; 84132; 85027; 86780; 93005; 93010; Q0162